=== PATIENT | female | born 1935 | race Caucasian/White ===

== ENCOUNTER 2016-08-02 16:01 | Emergency (ER) | payer SELFPAY ==
[~2016-08-02] VITALS: Ht 167.6 cm; Wt 52.0 kg
[2016-08-02 16:13] VITALS: BP 98/50; PULSE 62; RESP 18; TEMP 97.5; O2SAT 99
--- NOTE | 2016-08-02 16:23 | PD ---
HPI Chief Complaint: Syncope/Near-Syncope Time Seen by Provider: 16:17 Travel History International Travel<30 days: No Contact w/Intl Traveler<30days: No Traveled to known affect area: No History of Present Illness HPI 81-year-old female presents to the emergency department via ambulance with near-syncope episode in local restaurant. Patient states she went out to lunch with her friends, and had a cheeseburger, and when she went to pay the bill she felt weak and lightheaded, and almost passed out. Currently she denies any pain or other symptoms. She has no headache or other neurological symptoms. States she had nausea at the onset of her weakness, but none now. Patient states she did take some laxatives for her chronic constipation and upon arrival here in the emergency department actually went to the bathroom and moved her bowels, and she feels better. Patient's blood pressure is noted to be 90/50. Her pulse is also noted to be 55 bpm. She has not been seen here prior to this visit. She has no known drug allergies. [facility] Social History Alcohol Use: Yes Tobacco Use: No Substance Use: No Allergies-Medications (Allergen,Severity, Reaction): Coded Allergies: No Known Allergies (Unverified , 08/02/16) Reported Meds & Prescriptions Reported Meds & Active Scripts Active Reported Metoprolol Tartrate 25 Mg Tab 25 Mg PO DAILY Lisinopril 20 Mg Tab 20 Mg PO DAILY Review of Systems Except as stated in HPI: all other systems reviewed are Neg General / Constitutional: No: Fever Eyes: No: Visual changes HENT: No: Headaches Cardiovascular: No: Chest Pain or Discomfort Respiratory: No: Shortness of Breath Gastrointestinal: Positive: Nausea, No: Abdominal Pain Genitourinary: No: Dysuria Musculoskeletal: No: Pain Skin: No Rash Neurologic: No: Weakness Psychiatric: No: Depression Endocrine: No: Polydipsia Hematologic/Lymphatic: No: Easy Bruising Physical Exam Narrative GENERAL: Patient appears in no acute distress. SKIN: Warm and dry. Normal color. Slightly poor turgor. HEAD: Atraumatic. Normocephalic. EYES: Pupils equal and round. No scleral icterus. No injection or drainage. ENT: No nasal bleeding or discharge. Mucous membranes pink and moist. Pharynx is clear. Airway is patent. NECK: Trachea midline. Supple and nontender. CARDIOVASCULAR: Bradycardic rate and normal rhythm. RESPIRATORY: No accessory muscle use. Clear to auscultation. Breath sounds equal bilaterally. GASTROINTESTINAL: Abdomen soft, non-tender, nondistended. Hepatic and splenic margins not palpable. MUSCULOSKELETAL: Extremities without clubbing, cyanosis, or edema. No obvious deformities. NEUROLOGICAL: Awake and alert. No obvious cranial nerve deficits. Motor grossly within normal limits. Five out of 5 muscle strength in the arms and legs. Normal speech. PSYCHIATRIC: Appropriate mood and affect; insight and judgment normal. Data Data Last Documented VS Vital Signs Date Time Temp Pulse Resp B/P Pulse Ox O2 Delivery O2 Flow Rate FiO2 08/02/16 16:55 53 14 99/55 53 14 98/54 66 14 75/49 08/02/16 16:35 97 Room Air 08/02/16 16:13 97.5 Orders Electrocardiogram (08/02/16 16:) Complete Blood Count With Diff (08/02/16 16:) Comprehensive Metabolic Panel (08/02/16:) Magnesium (Mg) (08/02/16) B-Type Natriuretic Peptide (08/02/16 16:) Ckmb (Isoenzyme) Profile (08/02/16 16:24) Troponin I (08/02/16 16:) Act Partial Throm Time (Ptt) (08/02/16 16:) Prothrombin Time / Inr (Pt) (08/02/16 16:24) Urinalysis - C+S If Indicated (08/02/16 16:) Chest, Single Ap (08/02/16 16:) Ecg Monitoring (08/02/16) Iv Access Insert/Monitor (08/02/16:) Oximetry (08/02/16 16:24) Sodium Chloride 0.9% Flush (Ns Flush) (08/02/16 16:30) Orthostatic Vital Signs (08/02/16 16:) Sodium Chlorid 0.9% 500 Ml Inj (Ns 500 M (08/02/16 16:30) CKMB (08/02/16 16:35) CKMB% (08/02/16 16:35) Labs Laboratory Tests Test 08/02/16: White Blood Count 8.3 TH/MM3 Red Blood Count 4.42 MIL/MM3 Hemoglobin 12.9 GM/DL Hematocrit 38.5 % Mean Corpuscular Volume 86.9 FL Mean Corpuscular Hemoglobin 29.2 PG Mean Corpuscular Hemoglobin 33.6 % Concent Red Cell Distribution Width 13.1 % Platelet Count 309 TH/MM3 Mean Platelet Volume 7.0 FL Neutrophils (%) (Auto) 70.2 % Lymphocytes (%) (Auto) 16.9 % Monocytes (%) (Auto) 8.2 % Eosinophils (%) (Auto) 2.0 % Basophils (%) (Auto) 2.7 % Neutrophils # (Auto) 5.8 TH/MM3 Lymphocytes # (Auto) 1.4 TH/MM3 Monocytes # (Auto) 0.7 TH/MM3 Eosinophils # (Auto) 0.2 TH/MM3 Basophils # (Auto) 0.2 TH/MM3 CBC Comment DIFF FINAL Differential Comment Prothrombin Time 11.3 SEC Prothromb Time International 1.0 RATIO Ratio Activated Partial 21.4 SEC Thromboplast Time Sodium Level 140 MEQ/L Potassium Level 4.5 MEQ/L Chloride Level 108 MEQ/L Carbon Dioxide Level 21.3 MEQ/L Anion Gap 11 MEQ/L Blood Urea Nitrogen 31 MG/DL Creatinine 1.60 MG/DL Estimat Glomerular Filtration 31 ML/MIN Rate Random Glucose 142 MG/DL Calcium Level 8.8 MG/DL Magnesium Level 2.2 MG/DL Total Bilirubin 0.7 MG/DL Aspartate Amino Transf 39 U/L (AST/SGOT) Alanine Aminotransferase 19 U/L (ALT/SGPT) Alkaline Phosphatase 64 U/L Total Creatine Kinase 156 U/L Creatine Kinase MB 2.8 NG/ML Troponin I LESS THAN 0.02 NG/ML B-Type Natriuretic Peptide 127 PG/ML Total Protein 7.8 GM/DL Albumin 4.1 GM/DL [facility] Medical Decision Making Medical Screen Exam Complete: Yes Emergency Medical Condition: Yes Differential Diagnosis Near syncope. Hypertension. Vasovagal reaction. Narrative Course Patient is medically stable at time of exam. Labs ordered including CBC, CMP, cardiac labs, urinalysis. EKG and chest x-ray are ordered. EKG shows sinus bradycardia with first-degree AV block. CBC is unremarkable. CMP is unremarkable. Troponin is negative. Urinalysis is normal. Orthostatics were performed showing the patient does not feel symptomatic but she does have an increase in her heart rate and decrease in her blood pressure. Patient is given 500 mL of normal saline bolus. Patient is discussed with Dr. Smallwood. After the patient's 500 mL normal saline bolus orthostatics were improved and the patient feels well. Patient is felt to be stable to be discharged home. Patient should follow with her primary care physician. She is encouraged to drink more fluids. She can return the emergency Department with any worsening symptoms as warranted. Diagnosis Primary Impression: Syncope, near Additional Impression: Dehydration Referrals: Primary Care Physician Patient Instructions: Dehydration (ED), General Instructions Additional Instructions: After the patient's 500 mL normal saline bolus orthostatics were improved and the patient feels well. Patient is felt to be stable to be discharged home. Patient should follow with her primary care physician. She is encouraged to drink more fluids. She can return the emergency Department with any worsening symptoms as warranted. Med/Other Pt SpecificInfo: Prescription(s) given Disposition: DISCHARGE HOME Condition: Stable Vinay Nunez August 02, 2016 16:23
[2016-08-02] MEDS ORDERED: LISI-515 PO (16:25)
[2016-08-02] MEDS ORDERED: METO25TA3 PO (16:25)
[2016-08-02] MEDS ORDERED: SODIUM CHLORID 0.9% 500 ML INJ 500 ML IV ONE (16:30)
[2016-08-02] MEDS ORDERED: SODIUM CHLORIDE 0.9% FLUSH 10 ML FLUSH IVF PRN (16:30)
[2016-08-02 16:35] VITALS: O2SAT 97
[2016-08-02 16:41] LABS: AUTOMATED NEUTROPHIL # 5.8 TH/MM3 (1.8-7.7); BASOPHIL # 0.2 TH/MM3 (0-0.2); BASOPHIL % 2.7 % (0.0-2.0); EOSINOPHIL # 0.2 TH/MM3 (0-0.4); HEMATOCRIT 38.5 % (35.0-46.0); HEMO FLAGS DIFF FINAL; LYMPH % 16.9 % (9.0-44.0); LYMPHOCYTE # 1.4 TH/MM3 (1.0-4.8); MEAN CELL VOLUME 86.9 FL (80.0-100.0); MEAN CORPUSCULAR HEMOGLOBIN 29.2 PG (27.0-34.0); MEAN CORPUSCULAR HGB CONC 33.6 % (32.0-36.0); MONO % 8.2 % (0.0-8.0); NEUT % 70.2 % (16.0-70.0); PLATELET COUNT 309 TH/MM3 (150-450); RED BLOOD COUNT 4.42 MIL/MM3 (4.00-5.30); RED CELL DISTRIBUTION WIDTH 13.1 % (11.6-17.2); WHITE BLOOD COUNT 8.3 TH/MM3 (4.0-11.0)
[2016-08-02 16:50] LABS: CHLORIDE 108 MEQ/L (98-107); POTASSIUM 4.5 MEQ/L (3.5-5.1); SODIUM (NA) 140 MEQ/L (136-145)
[2016-08-02 16:54] LABS: ANION GAP 11 MEQ/L (5-15); BICARBONATE 21.3 MEQ/L (21.0-32.0); BLOOD UREA NITROGEN 31 MG/DL (7-18); MAGNESIUM 2.2 MG/DL (1.5-2.5)
--- NOTE | 2016-08-02 16:54 | RADHPO ---
EXAM DATE/TIME: 08/02/2016 16:32 [facility] COMPARISON: No previous studies available for comparison. INDICATIONS : Syncope. MEDICAL HISTORY : None. SURGICAL HISTORY : None. ENCOUNTER: Initial ACUITY: 1 day PAIN SCORE: 0/10 LOCATION: Bilateral chest FINDINGS: A single view of the chest demonstrates the lungs to be symmetrically aerated without evidence of mas s, infiltrate or effusion. The cardiomediastinal contours are unremarkable. Healing fracture right humerus. CONCLUSION: No acute disease. Jimi Lowe MD FACR on August 02, 2016 at 16:52 Board Certified Radiologist. This report was verified electronically.
[2016-08-02 16:55] VITALS: BP_SYST 75; BP_SYST 98; BP_SYST 99; BP_DIAS 49; BP_DIAS 54; BP_DIAS 55; RESP 14
[2016-08-02 16:55] LABS: APTT (PATIENT) 21.4 SEC (24.3-30.1); PROTHROMBIN TIME - PATIENT 11.3 SEC (9.8-11.6)
[2016-08-02 16:57] LABS: ALT (GPT) 19 U/L (10-53); AST (GOT) 39 U/L (15-37); GLOMERULAR FILTRATION RATE 31 ML/MIN (>89)
[2016-08-02 16:59] LABS: TOTAL BILIRUBIN ADULT 0.7 MG/DL (0.2-1.0)
[2016-08-02 17:00] LABS: ALKALINE PHOSPHATASE 64 U/L (45-117); CREATINE KINASE 156 U/L (26-192)
[2016-08-02 17:13] LABS: CKMB 2.8 NG/ML (0.5-3.6)
[2016-08-02 18:31] VITALS: BP_SYST 114; BP_SYST 119; BP_DIAS 55; BP_DIAS 67; RESP 18
--- NOTE | 2016-08-03 13:30 | EKG ---
Date Performed: 08/02/2016 Time Performed: 16:27:44 PTAGE: 81 years EKG: Sinus bradycardia with 1st degree A-V block rSr'(V1) - probable normal variant Abnormal ECG NO PREVIOUS TRACING DOCTOR: Simin Greer Interpretating Date/Time 08/03/2016 13:28:21
== END 2016-08-02 18:56 | disposition home or self-care (01) ==
LOC: PHEFT 16:01
DX: R55 Syncope and collapse (principal); E86.0 Dehydration; R00.1 Bradycardia, unspecified; I44.0 Atrioventricular block, first degree
CPT/HCPCS: 71010; 80053; 82550; 82552; 83735; 83880; 84484; 85025; 85610; 85730; 93005; 96360; 99284; J7040

== ENCOUNTER 2017-02-12 22:35 | Inpatient (IN) | payer MEDICARE ==
[~2017-02-12] VITALS: Ht 166.4 cm; Wt 53.6 kg
[~2017-02-12 22:35] MED LIST: LISI-515 PO; METO25TA3 PO
[2017-02-12 22:42] VITALS: BP 174/81; PULSE 63; RESP 20; O2SAT 94
--- NOTE | 2017-02-12 23:51 | PD ---
HPI Chief Complaint: Fall Time Seen by Provider: 23:47 Travel History International Travel<30 days: No Contact w/Intl Traveler<30days: No Traveled to known affect area: No History of Present Illness HPI 82-year-old female presents to the emergency department from home by EMS transport for injury to the right hip and thigh. Patient reports just prior to arrival to the emergency department she lost her balance on her son's floor which is uneven and fell landing on her hip. Patient states she did not hit her head did not have loss of consciousness she did not injure her neck or back or chest or her abdomen. 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 Patient was unable to stand after her fall and cannot weight-bear on the right lower extremity. Patient denies any left lower extremity pain patient denies any pelvic pain. Patient states pain is primarily mid thigh and lower thigh of the right lower extremity. Patient takes no blood thinning agents. Pain is 8/10 in intensity with attempted movement or palpation. PFSH Past Medical History Narrative Medical Hypertension; no tobacco use; nursing notes reviewed Cardiovascular Problems: Yes (murmur) Diminished Hearing: Yes Hypertension: Yes Tetanus Vaccination: Never Vaccinated Influenza Vaccination: Yes ?: Not : 1 Para: 1 Past Surgical History Surgical History: No Previous Surgery Social History Alcohol Use: Yes (occ) Tobacco Use: No Substance Use: No Allergies-Medications (Allergen,Severity, Reaction): Coded Allergies: No Known Allergies (Unverified , 08/02/16) Reported Meds & Prescriptions Reported Meds & Active Scripts Active Reported Lisinopril 20 Mg Tab 20 Mg PO DAILY Review of Systems Except as stated in HPI: all other systems reviewed are Neg Physical Exam Narrative GENERAL: Well-developed well-nourished female in no acute distress no respiratory distress SKIN: Warm and dry. HEAD: Atraumatic. Normocephalic. EYES: Pupils equal and round. No scleral icterus. No injection or drainage. ENT: No nasal bleeding or discharge. Mucous membranes pink and moist. NECK: Trachea midline. No JVD. CARDIOVASCULAR: Regular rate and rhythm. RESPIRATORY: No accessory muscle use. Clear to auscultation. Breath sounds equal bilaterally. GASTROINTESTINAL: Abdomen soft, non-tender, nondistended. Hepatic and splenic margins not palpable. MUSCULOSKELETAL: Extremities without clubbing, cyanosis, or edema. No obvious deformities. Arthritic changes to the hands and right shoulder which are chronic according to the patient; left lower extremity is held in hip flexion and abduction with knee flexion distally extremity is neurovascular tendon intact with attempted range of motion or palpation of the distal femur patient complains of pain. Dorsalis pedis pulses 2+ to palpation. Capillary refill brisk and less than 2 seconds per digit. NEUROLOGICAL: Awake and alert. No obvious cranial nerve deficits. Motor grossly within normal limits. Five out of 5 muscle strength in the arms and legs. Normal speech. PSYCHIATRIC: Appropriate mood and affect; insight and judgment normal. Data Data Last Documented VS Vital Signs Date Time Temp Pulse Resp B/P (MAP) Pulse Ox O2 Delivery O2 Flow Rate FiO2 02/13/17 00:20 60 20 164/71 (102) 98 Room Air Orders Orders Electrocardiogram (02/12/17 23:47) Complete Blood Count With Diff (02/12/17 23:47) Comprehensive Metabolic Panel (02/12/17 23:47) Prothrombin Time / Inr (Pt) (02/12/17 23:47) Act Partial Throm Time (Ptt) (02/12/17 23:47) Urinalysis - C+S If Indicated (02/12/17 23:47) Type And Screen (02/12/17 23:47) Chest, Single Ap (02/12/17 23:47) Femur (Ap & Lat/2vws) (02/12/17 23:47) Iv Access Insert/Monitor (02/12/17 23:47) Oximetry (02/12/17 23:47) Ecg Monitoring (02/12/17 23:47) Morphine Inj (Morphine Inj) (02/13/17 00:00) Ondansetron Inj (Zofran Inj) (02/13/17 00:00) Sodium Chloride 0.9% Flush (Ns Flush) (02/13/17 00:00) Diet Npo (02/14/17 Breakfast) Urinary Catheter Insert/Apply (02/13/17 01:25) Ice/Cold Pack (02/13/17 01:25) Traction (02/13/17 01:25) Admit Order (Ed Use Only) (02/13/17 ) Melt House Centrifugal Operator / Telemetry CLAUDIA.Q8H (02/13/17 01:32) Diet Npo (02/13/17 Breakfast) Activity Bed Rest (02/13/17 01:32) Notify Dr: Other (02/13/17 01:32) Consult Orthopedic (02/13/17 ) Labs Laboratory Tests Test 02/12/17 23:50 White Blood Count 7.9 TH/MM3 Red Blood Count 4.39 MIL/MM3 Hemoglobin 13.1 GM/DL Hematocrit 38.0 % Mean Corpuscular Volume 86.7 FL Mean Corpuscular Hemoglobin 29.8 PG Mean Corpuscular Hemoglobin Concent 34.3 % Red Cell Distribution Width 13.4 % Platelet Count 289 TH/MM3 Mean Platelet Volume 7.5 FL Neutrophils (%) (Auto) 69.0 % Lymphocytes (%) (Auto) 21.1 % Monocytes (%) (Auto) 7.7 % Eosinophils (%) (Auto) 1.6 % Basophils (%) (Auto) 0.6 % Neutrophils # (Auto) 5.5 TH/MM3 Lymphocytes # (Auto) 1.7 TH/MM3 Monocytes # (Auto) 0.6 TH/MM3 Eosinophils # (Auto) 0.1 TH/MM3 Basophils # (Auto) 0.0 TH/MM3 CBC Comment DIFF FINAL Differential Comment Prothrombin Time 10.7 SEC Prothromb Time International Ratio 1.0 RATIO Activated Partial Thromboplast Time 24.1 SEC Blood Urea Nitrogen 26 MG/DL Creatinine 1.07 MG/DL Random Glucose 139 MG/DL Total Protein 7.7 GM/DL Albumin 3.9 GM/DL Calcium Level 9.1 MG/DL Alkaline Phosphatase 69 U/L Aspartate Amino Transf (AST/SGOT) 24 U/L Alanine Aminotransferase (ALT/SGPT) 20 U/L Total Bilirubin 0.4 MG/DL Sodium Level 138 MEQ/L Potassium Level 4.2 MEQ/L Chloride Level 104 MEQ/L Carbon Dioxide Level 26.8 MEQ/L Anion Gap 7 MEQ/L Estimat Glomerular Filtration Rate 49 ML/MIN MDM Medical Decision Making Medical Screen Exam Complete: Yes Emergency Medical Condition: Yes Medical Record Reviewed: Yes Interpretation(s) EKG: Normal sinus rhythm rate 61 first-degree heart block RSR prime V1 V2 no acute ST elevation or injury pattern Last Impressions Femur X-Ray 02/12/17 1524 Signed Impressions: Service Date/Time: January 00:25 - CONCLUSION: Intertrochanteric fracture with medial angulation. Constantino Blank MD Chest X-Ray 02/12/17 9827 Signed Impressions: Service Date/Time: January 00:27 - CONCLUSION: No evidence of acute cardiopulmonary disease. Constantino Blank MD CBC & BMP Diagram 02/12/17 23:50 Total Protein 7.7, Albumin 3.9, Calcium Level 9.1, Alkaline Phosphatase 69, Aspartate Amino Transf (AST/SGOT) 24, Alanine Aminotransferase (ALT/SGPT) 20, Total Bilirubin 0.4 Vital Signs Date Time Temp Pulse Resp B/P (MAP) Pulse Ox O2 Delivery O2 Flow Rate FiO2 02/13/17 00:20 60 20 164/71 (102) 98 Room Air 02/13/17 00:15 Room Air 02/12/17 22:42 63 20 174/81 (112) 94 Differential Diagnosis Hip fracture femur fracture subluxation dislocation Narrative Course IV access obtained specimens collected and sent for resulting imaging studies ordered Hip x-ray consistent with intertrochanteric fracture of the right hip Patient informed of plan for admission for surgical repair of fracture Call placed to [facility] service for admission with consult in a.m. to orthopedist Physician Communication Physician Communication Call placed to [facility] service for admission Diagnosis Primary Impression: Closed intertrochanteric fracture of right hip Admitting Information Admitting Physician Requests: Admit Nadege Meza MD Feb 12, 2017 23:51
[2017-02-13] VITALS (12 sets, daily range): BP systolic 105–169; BP diastolic 55–80; PULSE 60–86; RESP 17–20; TEMP 95.7–98.3; O2SAT 93–99
[2017-02-13] MEDS ORDERED: MORPHINE SULFATE 4 MG/ML INJ IV PUSH ONE
[2017-02-13] MEDS ORDERED: ONDANSETRON HCL 4 MG/2 ML VIAL IVP ONE
[2017-02-13] MEDS ORDERED: SODIUM CHLORIDE 0.9% FLUSH 10 ML FLUSH IVF PRN
[2017-02-13 00:02] LABS: AUTOMATED NEUTROPHIL # 5.5 TH/MM3 (1.8-7.7); BASOPHIL % 0.6 % (0.0-2.0); EOSINOPHIL # 0.1 TH/MM3 (0-0.4); EOSINOPHIL % 1.6 % (0.0-4.0); HEMO FLAGS DIFF FINAL; LYMPH % 21.1 % (9.0-44.0); LYMPHOCYTE # 1.7 TH/MM3 (1.0-4.8); MEAN CELL VOLUME 86.7 FL (80.0-100.0); MEAN CORPUSCULAR HEMOGLOBIN 29.8 PG (27.0-34.0); MEAN CORPUSCULAR HGB CONC 34.3 % (32.0-36.0); MONO % 7.7 % (0.0-8.0); PLATELET COUNT 289 TH/MM3 (150-450); RED BLOOD COUNT 4.39 MIL/MM3 (4.00-5.30); RED CELL DISTRIBUTION WIDTH 13.4 % (11.6-17.2); WHITE BLOOD COUNT 7.9 TH/MM3 (4.0-11.0)
[2017-02-13 00:17] LABS: APTT (PATIENT) 24.1 SEC (24.3-30.1); PROTHROMBIN TIME - PATIENT 10.7 SEC (9.8-11.6)
[2017-02-13 00:21] LABS: ALT (GPT) 20 U/L (10-53); ANION GAP 7 MEQ/L (5-15); AST (GOT) 24 U/L (15-37); BICARBONATE 26.8 MEQ/L (21.0-32.0); BLOOD UREA NITROGEN 26 MG/DL (7-18); CHLORIDE 104 MEQ/L (98-107); GLOMERULAR FILTRATION RATE 49 ML/MIN (>89); POTASSIUM 4.2 MEQ/L (3.5-5.1); SODIUM (NA) 138 MEQ/L (136-145)
[2017-02-13 00:23] LABS: ALKALINE PHOSPHATASE 69 U/L (45-117); TOTAL BILIRUBIN ADULT 0.4 MG/DL (0.2-1.0)
--- NOTE | 2017-02-13 01:01 | RADRPT ---
EXAM DATE/TIME: 02/13/2017 00:27 [facility] COMPARISON: CHEST SINGLE AP, August 02, 2016, 16:32. INDICATIONS : Shortness of breath. MEDICAL HISTORY : None. SURGICAL HISTORY : None. ENCOUNTER: Initial ACUITY: 1 day PAIN SCORE: 0/10 LOCATION: Bilateral chest FINDINGS: There is biapical pleural thickening/scarring. No acute pneumonia seen. No pleural effusion or pneumo thorax. Heart size stable, within normal limits. Thoracic aorta is tortuous. There is a partly healed fracture of the surgical neck of the right humerus. CONCLUSION: No evidence of acute cardiopulmonary disease. Constantino Blank MD on February 13, 2017 at 0:57 Board Certified Radiologist. This report was verified electronically.
--- NOTE | 2017-02-13 01:03 | RADRPT ---
EXAM DATE/TIME: 02/13/2017 00:25 [facility] COMPARISON: No previous studies available for comparison. INDICATIONS : Right femur pain, fall. MEDICAL HISTORY : None. SURGICAL HISTORY : None. ENCOUNTER: Initial ACUITY: 1 day PAIN SCORE: 10/10 LOCATION: Right proximal femur FINDINGS: There is an acute intertrochanteric fracture of the right femur with moderate medial angulation defor mity. Femoral head appears intact. 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 No subluxation. CONCLUSION: Intertrochanteric fracture with medial angulation. Constantino Blank MD on February 13, 2017 at 1:01 Board Certified Radiologist. This report was verified electronically.
[2017-02-13] MEDS ORDERED: PRAV40TA2 PO (01:52)
[2017-02-13] MEDS ORDERED: SODIUM CHLOR 0.45% 1000 ML INJ 1,000 ML IV SCH (01:58)
[2017-02-13] MEDS ORDERED: LACTULOSE SYRUP 20 GM/30 ML CUP PO PRN (02:00)
[2017-02-13] MEDS ORDERED: BISACODYL 10 MG SUPP RECTAL PRN (02:00)
[2017-02-13] MEDS ORDERED: ONDANSETRON HCL 4 MG/2 ML VIAL IVP PRN ×2 (02:00→08:45)
[2017-02-13] MEDS ORDERED: SODIUM CHLORIDE 0.9% FLUSH 10 ML FLUSH IV FLUSH PRN (02:00)
[2017-02-13] MEDS ORDERED: MAGNESIUM HYDROXIDE SUSP 30 ML CUP PO PRN (02:00)
[2017-02-13] MEDS ORDERED: NALOXONE HCL 0.4 MG/ML AMP IV PUSH PRN (02:00)
[2017-02-13] MEDS ORDERED: SENNOSIDES 8.6 MG TAB PO PRN (02:00)
--- NOTE | 2017-02-13 02:10 | HHI.HP ---
[facility] Service [facility] Primary Care Physician Denny Ma MD Admission Diagnosis R hip fracture, closed Diagnoses: Travel History International Travel<30 Days: No Contact w/Intl Traveler <30 Da: No Traveled to Known Affected Are: No History of Present Illness 2-year-old female with a past medical history of hypertension and hyperlipidemia since after falling in her home this evening. The patient reports she had walked into her son's bedroom and tripped over a board on the floor falling directly onto her right hip. She has full memory of the event. She denies any preceding lightheadedness or dizziness. She did not hit her head or lose consciousness. Femur x-ray significant for an intertrochanteric fracture with medial angulation. The patient reports pain only when she attempts to move. Review of Systems Denies fever or chills Denies blurry vision, otorrhea, rhinorrhea Denies sore throat and cough No chest pain, palpitations, shortness of breath No abdominal pain Denies constipation/diarrhea/nausea/vomiting Denies muscle pain/weakness No rashes Past Family Social History Past Medical History Hypertension Hyperlipidemia Past Surgical History None Reported Medications Reported Meds & Active Scripts Active Reported Pravastatin 40 Mg Tab 40 Mg PO DAILY Lisinopril 20 Mg Tab 20 Mg PO DAILY Allergies: Coded Allergies: No Known Allergies (Unverified , 08/02/16) Family History Denies family history of cardiac disease or diabetes mellitus. Social History Never smoker. Drinks eggnog occasionally during the holidays. Denies illicit drug use. Physical Exam Vital Signs Vital Signs Date Time Temp Pulse Resp B/P (MAP) Pulse Ox O2 Delivery O2 Flow Rate FiO2 02/13/17 00:20 60 20 164/71 (102) 98 Room Air 02/13/17 00:15 Room Air 02/12/17 22:42 63 20 174/81 (112) 94 Physical Exam GENERAL: Thin, female lying in bed SKIN: No rashes, ecchymoses or lesions. Cool and dry. HEAD: Atraumatic. Normocephalic. No temporal or scalp tenderness. EYES: Pupils equal round and reactive. Extraocular motions intact. No scleral icterus. No injection or drainage. ENT: Nose without bleeding, purulent drainage or septal hematoma. Throat without erythema, tonsillar hypertrophy or exudate. Uvula midline. Airway patent. NECK: Trachea midline. No JVD or lymphadenopathy. Supple, nontender, no meningeal signs. CARDIOVASCULAR: Regular rate and rhythm. 3/6 systolic ejection murmur. RESPIRATORY: Clear to auscultation. Breath sounds equal bilaterally. No wheezes , rales, or rhonchi. GASTROINTESTINAL: Abdomen soft, non-tender, nondistended. No hepato-splenomegaly , or palpable masses. No guarding. MUSCULOSKELETAL: Right lower extremity held in hip flexion. Neurovascularly intact. Dorsalis pedis pulses 2+. No edema bilaterally. NEUROLOGICAL: Awake and alert. Cranial nerves II through XII intact. Motor and sensory grossly within normal limits. Normal speech. Laboratory Laboratory Tests Test 02/12/17 23:50 White Blood Count 7.9 Red Blood Count 4.39 Hemoglobin 13.1 Hematocrit 38.0 Mean Corpuscular Volume 86.7 Mean Corpuscular Hemoglobin 29.8 Mean Corpuscular Hemoglobin Concent 34.3 Red Cell Distribution Width 13.4 Platelet Count 289 Mean Platelet Volume 7.5 Neutrophils (%) (Auto) 69.0 Lymphocytes (%) (Auto) 21.1 Monocytes (%) (Auto) 7.7 Eosinophils (%) (Auto) 1.6 Basophils (%) (Auto) 0.6 Neutrophils # (Auto) 5.5 Lymphocytes # (Auto) 1.7 Monocytes # (Auto) 0.6 Eosinophils # (Auto) 0.1 Basophils # (Auto) 0.0 CBC Comment DIFF FINAL Differential Comment Prothrombin Time 10.7 Prothromb Time International Ratio 1.0 Activated Partial Thromboplast Time 24.1 Blood Urea Nitrogen 26 Creatinine 1.07 Random Glucose 139 Total Protein 7.7 Albumin 3.9 Calcium Level 9.1 Alkaline Phosphatase 69 Aspartate Amino Transf (AST/SGOT) 24 Alanine Aminotransferase (ALT/SGPT) 20 Total Bilirubin 0.4 Sodium Level 138 Potassium Level 4.2 Chloride Level 104 Carbon Dioxide Level 26.8 Anion Gap 7 Estimat Glomerular Filtration Rate 49 Result Diagram: 02/12/17234902/12/172349 Caprini VTE Risk Assessment Caprini VTE Risk Assessment: Mod/High Risk (score >= 2) Caprini Risk Assessment Model Point Value = 1 Point Value = 2 Point Value = 3 Point Value = 5 Age 41-60 Minor surgery BMI > 25 kg/m2 Swollen legs Varicose veins or History of unexplained or recurrent spontaneous Oral contraceptives or hormone replacement Sepsis (< 1 month) Serious lung disease, including pneumonia (< 1 month) Abnormal pulmonary function Acute myocardial infarction Congestive heart failure (< 1 month) History of inflammatory bowel disease Medical patient at bed rest Age 61-74 Arthroscopic surgery Major open surgery (> 45 min) Laparoscopic surgery (> 45 min) Malignancy Confined to bed (> 72 hours) Immobilizing plaster cast Central venous access Age >= 75 History of VTE Family history of VTE Factor V Leiden Prothrombin [id number] Lupus anticoagulant Anticardiolipin antibodies Elevated serum homocysteine Heparin-induced thrombocytopenia Other congenital or acquired thrombophilia Stroke (< 1 month) Elective arthroplasty Hip, pelvis, or leg fracture Acute spinal cord injury (< 1 month) Prophylaxis Regimen Total Risk Factor Score Risk Level Prophylaxis Regimen 0-1 Low Early ambulation 2 Moderate Order ONE of the following: *Sequential Compression Device (SCD) *Heparin 5000 units SQ BID 3-4 Higher Order ONE of the following medications: *Heparin 5000 units SQ TID *Enoxaparin/Lovenox 40 mg SQ daily (WT < 150 kg, CrCl > 30 mL/min) *Enoxaparin/Lovenox 30 mg SQ daily (WT < 150 kg, CrCl > 10-29 mL/min) *Enoxaparin/Lovenox 30 mg SQ BID (WT < 150 kg, CrCl > 30 mL/min) AND/OR *Sequential Compression Device (SCD) 5 or more Highest Order ONE of the following medications: *Heparin 5000 units SQ TID (Preferred with Epidurals) *Enoxaparin/Lovenox 40 mg SQ daily (WT < 150 kg, CrCl > 30 mL/min) *Enoxaparin/Lovenox 30 mg SQ daily (WT < 150 kg, CrCl > 10-29 mL/min) *Enoxaparin/Lovenox 30 mg SQ BID (WT < 150 kg, CrCl > 30 mL/min) AND *Sequential Compression Device (SCD) Assessment and Plan Assessment and Plan 82-year-old female with a past medical history significant for hypertension and hyperlipidemia presents with right intertrochanteric hip fracture after a slip and fall accident at home. 1. Right intertrochanteric hip fracture Femur x-ray shows intertrochanteric fracture with medial angulation Orthopedic surgery consulted, appreciate recommendations Nothing by mouth in anticipation of OR later today Morphine for pain 2. Hypertension Continue home lisinopril 3. Hyperlipidemia Continue home pravastatin FEN NPO NS at 65 cc/hr Electrolytes: monitor and replete prn Holding pharmacologic anticoagulation in anticipation of OR later today Spoke with the ED physician at length about the case Physician Certification 2 Midnight Certification Type: Admission for Inpatient Services Order for Inpatient Services The services are ordered in accordance with Medicare regulations or non- Medicare payer requirements, as applicable. In the case of services not specified as inpatient-only, they are appropriately provided as inpatient services in accordance with the 2-midnight benchmark. Estimated LOS (days): 2 2 days is the estimated time the patient will need to remain in the hospital, assuming treatment plan goals are met and no additional complications. Post-Hospital Plan: Not yet determined Katie Hoffman MD Feb 13, 2017 02:10
[2017-02-13] MEDS ORDERED: MORPHINE SULFATE 2 MG/ML INJ IV PUSH PRN (02:15)
[2017-02-13 02:26] LABS: BLOOD, URINE NEG (NEG); GLUCOSE,URINE NEG (NEG); KETONE, URINE NEG (NEG); MUCUS URINE FEW /lpf (OCC); NITRITE,URINE NEG (NEG); URINE COLOR YELLOW (YELLW/STRAW)
[2017-02-13 02:27] LABS: COMMENT (UR) CATH-CULT NOT IND; CULTURE IF INDICATED CATH CULTURE NOT IND
[2017-02-13] MEDS ORDERED: LACTATED RINGER'S 1000 ML IV PRN (02:45)
[2017-02-13] MEDS ORDERED: SODIUM CHLORID 0.9% 500 ML IV PRN (02:45)
[2017-02-13] MEDS ORDERED: POVIDONE IODINE 5% (ANTISEPSIS KIT) 4 APPLICATIONS EACH NARE PRN (02:45)
[2017-02-13] MEDS ORDERED: CHLORHEXIDINE GLUCONATE 2 % 1 PACK (2 CLOTHS) TOPICAL PRN (02:45)
[2017-02-13] MEDS: LISINOPRIL 20 MG TAB PO SCH (07:19)
[2017-02-13] MEDS: PRAVASTATIN SOD 40 MG TAB PO SCH (07:19)
[2017-02-13] MEDS ORDERED: VANCOMYCIN HCL 1000 MG VIAL ONE (07:44)
[2017-02-13] MEDS ORDERED: GENTAMICIN SULFATE 80 MG/2 ML VIAL ONE (07:44)
[2017-02-13] MEDS ORDERED: SODIUM CHLOR 0.9% 250 ML INJ 250 ML ONE (07:45)
[2017-02-13] MEDS ORDERED: ACETAMINOPHEN 1000 MG/100 ML 100 ML IV ONE (08:04)
[2017-02-13] MEDS ORDERED: MORPHINE SULFATE 4 MG/ML INJ IV PUSH PRN (08:30)
[2017-02-13] MEDS ORDERED: ACETAMINOPHEN/HYDROcodone 325 MG/7.5 MG TAB PO PRN ×2 (08:30)
[2017-02-13] MEDS ORDERED: ENOX30P SQ (08:31)
[2017-02-13] MEDS ORDERED: ASPI81CH6 CHEW (08:31)
[2017-02-13] MEDS ORDERED: HYDR-3288 PO (08:32)
[2017-02-13] MEDS ORDERED: diphenhydrAMINE HCL 25 MG CAP PO PRN (08:45)
[2017-02-13] MEDS ORDERED: SODIUM CHLORIDE 0.9% FLUSH 5 ML FLUSH IVF PRN (09:00)
[2017-02-13] MEDS ORDERED: Post-op Orders (for Pharmacy) MISC XX ONE (09:00)
[2017-02-13] MEDS: SODIUM CHLORIDE 0.9% FLUSH 5 ML FLUSH IVF SCH ×2 (09:00→21:04)
[2017-02-13] MEDS ORDERED: SODIUM CHLORIDE 0.9% FLUSH 10 ML FLUSH IV FLUSH SCH (09:00)
[2017-02-13] MEDS ORDERED: MISCELLANEOUS PHARMACY INFORMATION XX ONE (09:00)
[2017-02-13] MEDS ORDERED: DOCUSATE SODIUM 50 MG/SENNA 8.6 MG TAB PO SCH (09:00)
[2017-02-13] MEDS: DOCUSATE SODIUM 50 MG/SENNA 8.6 MG TAB PO SCH ×2 (09:00→21:05)
[2017-02-13] MEDS: MULTIVITAMINS/MINERALS THERAPEUTIC TAB PO SCH (09:00)
[2017-02-13] MEDS ORDERED: MISCELLANEOUS NURSING INFORMATION XX PRN (09:00)
[2017-02-13] MEDS ORDERED: ceFAZolin INJ 1,000 MG VIAL ONE (09:04)
[2017-02-13] MEDS ORDERED: SODIUM CHLORIDE 0.9% INJ 100 ML ONE (09:04)
--- NOTE | 2017-02-13 09:56 | MB ---
cc: ELLA MCCARTHY M.D. DATE OF CONSULTATION: 02/13/2017 REASON FOR CONSULTATION Right intertrochanteric hip fracture. HISTORY OF PRESENT ILLNESS 82-year-old female with past history of hypertension, hyperlipidemia, presented to [facility] Emergency Room after a fall. She tripped and landed directly on the right hip. She developed severe pain with inability to stand, walk, ambulate or move the hip after the fall. She denies loss of consciousness or lightheadedness. X-rays reveal right intertrochanteric hip fracture with angulation. She has worsening of pain with any movement, slight pain and relief with ice and immobilization. No numbness or tingling related to her symptoms. PAST MEDICAL HISTORY 1. Hypertension. 2. Hyperlipidemia. MEDICATION Pravastatin and Lisinopril. ALLERGIES NO KNOWN DRUG ALLERGIES. FAMILY HISTORY Family history is reviewed and unremarkable. SOCIAL HISTORY Nonsmoker, occasionally drinks. Denies drugs. REVIEW OF SYSTEMS Negative for 10-systems other than HPI. PHYSICAL EXAMINATION VITAL SIGNS: Temperature 98, pulse 63, respirations 20, blood pressure 170/80. GENERAL: The patient is a thin female lying in bed, awake, alert. She is very anxious. SKIN: Skin is warm, dry, intact. HEENT: Normocephalic, atraumatic. Pupils are round and reactive to light. Extraocular muscles intact. NECK: Neck is supple. LUNGS: Clear. HEART: Regular rate and rhythm. ABDOMEN: Soft, nontender. EXTREMITIES: She has pain with passive motion of the right hip. She has swelling of the right hip. Skin is intact. She can flex her ankle and toes distally. LABORATORY DATA White blood cell count 7.9, hemoglobin 13, hematocrit 38, platelets 289, glucose 139, creatinine 1.07. X-RAYS Right hip reveal right intertrochanteric hip fracture with angulation. IMPRESSION 82-year-old female status post fall, right displaced intertrochanteric hip fracture. PLAN I discussed diagnosis and treatment options. Also spoke about Nonoperative treatment versus surgery. Surgery would consist of open reduction, internal fixation with intramedullary nailing of the right intertrochanteric hip fracture. Risks of surgery were discussed in detail which include but not limited to anesthesia, bleeding, infection, damage to nerves and blood vessels, pain, failure of hardware, blood clots, pulmonary embolism, even . The patient's pain is severe, she favored the benefits over the risks, she did wish to proceed with surgery. Written consent has been obtained. Surgical site has been marked. MD MAXIMINO Werner/RAYMUNDO /9:27 AM /9:42 AM
--- NOTE | 2017-02-13 10:27 | PD.ORT.PN ---
Objective Vitals Vital Signs Date Time Temp Pulse Resp B/P (MAP) Pulse Ox O2 Delivery O2 Flow Rate FiO2 02/13/17 09:00 68 25 151/68 (95) 97 02/13/17 08:30 75 25 169/78 (108) 97 02/13/17 08:12 74 02/13/17 08:12 98.1 74 19 182/84 (116) 98 02/13/17 08:00 98.3 70 18 169/80 (109) 99 02/13/17 07:29 65 02/13/17 03:00 97.7 83 18 169/67 (101) 98 02/13/17 00:20 60 20 164/71 (102) 98 Room Air 02/13/17 00:15 Room Air 02/12/17 22:42 63 20 174/81 (112) 94 I/O 02/12/17 02/12/17 02/12/17 02/13/17 02/13/17 02/13/17 07:00 15:00 23:00 07:00 15:00 23:00 Intake Total 0 ml 700 ml Output Total 500 ml 10 ml Balance -500 ml 690 ml Intake Oral 0 ml Other 700 ml Output Urine Total 500 ml Estimated Blood Loss 10 ml # Bowel Movements 1 Result Diagram: 02/12/17 2350 02/12/17 2350 Other Results Laboratory Tests Test 02/12/17 23:50 Prothromb Time International Ratio 1.0 RATIO Prothrombin Time 10.7 SEC (9.8-11.6) Imaging Last 24 hours Impressions Femur X-Ray 02/12/172346 Signed Impressions: Service Date/Time: January 00:25 - CONCLUSION: Intertrochanteric fracture with medial angulation. Constantino Blank MD Chest X-Ray 02/12/172346 Signed Impressions: Service Date/Time: January 00:27 - CONCLUSION: No evidence of acute cardiopulmonary disease. Constantino Blank MD Assessment & Plan Ortho Post Op Day #: 0 Problem List: Assessment and Plan s/p R Troch Nail POD#0 50%PWB daily dressing changes lovenox d/c planning f/up dr. milian 2 weeks Tom Rivas Feb 13, 2017 10:26
--- NOTE | 2017-02-13 10:27 | EKG ---
Date Performed: 02/13/2017 Time Performed: 03:08:06 PTAGE: 82 years EKG: Sinus rhythm with 1st degree A-V block Abnormal ECG PREVIOUS TRACING : 08/02/2016 16.27 DOCTOR: Chico Broussard Interpretating Date/Time 02/13/2017 10:24:56
[2017-02-13] MEDS ORDERED: DO NOT ADM ANY ANTICOAGULANT DRUGS PRN (10:28)
--- NOTE | 2017-02-13 10:28 | EKG ---
Date Performed: 02/13/2017 Time Performed: 00:12:45 PTAGE: 82 years EKG: Sinus rhythm WITH FIRST DEGREE AV BLOCK POSSIBLE RIGHT VENTRICULAR CONDUCTION DELAY ABNORMAL ECG NO PREVIOUS TRACING DOCTOR: Chico Broussard Interpretating Date/Time 02/13/2017 10:25:42
--- NOTE | 2017-02-13 10:48 | MP ---
cc: ELLA MCCARTHY M.D. DATE OF SURGERY 02/13/2017 PREOPERATIVE DIAGNOSIS Right intertrochanteric hip fracture. POSTOPERATIVE DIAGNOSES Right intertrochanteric hip fracture. PROCEDURE Intramedullary nailing right intertrochanteric hip fracture. SURGEON Dr. lEla Mccarthy NUT SHELLER EDUARDA Siddiqui ANESTHESIA General ESTIMATED BLOOD LOSS 100 cc COMPLICATIONS None IMPLANTS USED Synthes JUSTIFICATION This patient is an 82-year female who fell sustaining a right displaced intertrochanteric hip fracture. She was taken to [facility] emergency room where x-rays confirmed the above-named findings. Orthopedic surgery consultation. The patient counseled as to the risks, benefits and alternatives to the above-named proposed surgical procedure. She did wish to proceed with surgery. PROCEDURE IN DETAIL A written consent was obtained. The patient identified by name, taken to the operating room, placed supine on the operating room table. General anesthesia was administered as well as one gram of IV Ancef and one gram of IV vancomycin. The right foot was placed in padded traction boot. The left leg placed in padded well leg qiu. All bony prominences and pressure points were well padded. The right hip and right lower tree prepped and draped using as Isopropyl alcohol, Hibiclens solution and Chloraprep solution. After a time-out was performed, a longitudinal incision made over the lateral aspect of the right hip. The fascial layer was incised. The guidewire was used to gain entrance into the intramedullary canal of the femur followed by a cannulated entry reamer and subsequently a Synthes 11 mm x 170-mm titanium trochanteric femoral nail was inserted into the intramedullary canal of the femur. The 130 degree locking jig was used to place a guide pin centered in the femoral head on the AP and lateral fluoroscopic projections followed by placement of 90 mm spiral blade. The top locking screw was then secured to create a fixed angle sliding construct distally. The locking jig was used to place a single lateral to medial transverse static locking screw. Fluoroscopic imaging again confirmed hardware placement and fracture reduction. The surgical wounds were thoroughly irrigated with sterile saline solution. The fascial layer was closed with #1 Vicryl sutures, subcutaneous tissues closed with 2-0 Vicryl suture, and skin was closed with Dermabond. Sterile dressings applied. The patient tolerated the procedure well with no intraoperative complications noted. Aleksander Rivas, Physician Sludge Filtration Attendant Certified, was present during the entire procedure to include patient positioning and the procedure itself. The medical necessity of a physician assistant accounting manager was indicated in this case due to the complexity of the procedure. He assisted with both manipulation of the leg and also traction of muscle, tendon, bone and neurovascular structures. He assisted with both achieving and maintaining fracture reduction along with implantation of the internal fixation device. MD MAXIMINO Werner/JOSI /10:18 AM /10:38 AM
[2017-02-13] MEDS ORDERED: *morphine SULFATE 8 MG/ML PERIprocedure ONLY ONE ×3 (10:55→11:22)
[2017-02-13] MEDS: DEXT 5%-NACL 0.45% 1000 ML INJ 1,000 ML IV SCH ×2 (10:56→16:28)
--- NOTE | 2017-02-13 11:31 | RADRPT ---
EXAM DATE/TIME: 02/13/2017 10:06 [place] COMPARISON: No previous studies available for comparison. INDICATIONS : Troch nail right hip. MEDICAL HISTORY : Right intertrochanteric fracture. SURGICAL HISTORY : None. ENCOUNTER: Initial ACUITY: 2 days PAIN SCORE: Non-responsive. LOCATION: Right Hip. FINDINGS: For images recorded digitally in the operating room during placement of intramedullary leola and proxim al femoral nail. Distal intercalated screw is also present. CONCLUSION: Intraoperative images. Ankush Bennett MD on February 13, 2017 at 11:29 Board Certified Radiologist. This report was verified electronically.
[2017-02-13] MEDS ORDERED: ePHEDrine/NS 25 MG/5 ML SYR IV ONE (12:00)
[2017-02-13] MEDS ORDERED: ROCURONIUM INJ 50 MG/5 ML SYRINGE IV PUSH ONE (12:00)
[2017-02-13] MEDS ORDERED: GLYCOPYRROLATE 1 MG/5 ML SYRINGE IV PUSH ONE (12:00)
[2017-02-13] MEDS ORDERED: MIDAZOLAM HCL 2 MG/2 ML VIAL IV ONE (12:00)
[2017-02-13] MEDS ORDERED: PHENYLEPH/NS 1000 MCG/10 ML SYR IV ONE (12:00)
[2017-02-13] MEDS ORDERED: NEOSTIGMINE 3 MG/3 ML SYR IV ONE (12:00)
[2017-02-13] MEDS ORDERED: LIDOCAINE HCL 1% PF 5 ML SYRINGE OTHER ONE (12:00)
[2017-02-13] MEDS ORDERED: ONDANSETRON HCL 4 MG/2 ML VIAL IV PUSH ONE (12:00)
[2017-02-13] MEDS ORDERED: PROPOFOL 200 MG/20 ML AMP IV ONE (12:00)
[2017-02-13] MEDS ORDERED: DEXAMETHASONE SOD PHOS 4 MG/ML VIAL IV ONE (12:00)
--- NOTE | 2017-02-13 13:58 | HHI.PR ---
Addendum to Inpatient Note Addendum Reason: Additional Documentation Additional Information Pt drowsy but arousable. Had sx this morning. Denies any pain at this time. No CP/SOB/N/V dressing over the right hip d/c/i. moves upper extremities w no difficulty and upon command. 1. s/p Intramedullary nailing right intertrochanteric hip fracture. POD#0. Pain control, Abx, dvt proph per ortho. 2. Hypertension Continue home lisinopril 3. Hyperlipidemia Continue home pravastatin Mireya Hardwick MD Feb 13, 2017 13:58
[2017-02-14 03:20] VITALS: BP 108/53; PULSE 83; RESP 17; TEMP 96.9; O2SAT 92
[2017-02-14] MEDS: DEXT 5%-NACL 0.45% 1000 ML INJ 1,000 ML IV SCH ×2 (03:59→15:24)
[2017-02-14 06:11] LABS: HEMATOCRIT 28.8 % (35.0-46.0); MEAN CELL VOLUME 87.6 FL (80.0-100.0); MEAN CORPUSCULAR HEMOGLOBIN 28.9 PG (27.0-34.0); MEAN CORPUSCULAR HGB CONC 32.9 % (32.0-36.0); PLATELET COUNT 228 TH/MM3 (150-450); RED BLOOD COUNT 3.29 MIL/MM3 (4.00-5.30); RED CELL DISTRIBUTION WIDTH 13.8 % (11.6-17.2); REVIEW FLAG FINAL; WHITE BLOOD COUNT 10.6 TH/MM3 (4.0-11.0)
[2017-02-14 06:39] LABS: BICARBONATE 24.5 MEQ/L (21.0-32.0); POTASSIUM 4.2 MEQ/L (3.5-5.1)
--- NOTE | 2017-02-14 07:56 | HHI.PR ---
Subjective Remarks Pt states she feels good, had no pain until she started moving w PT. no nausea or vomiting. No lightheadedness or dizziness. Objective Vitals Vital Signs Date Time Temp Pulse Resp B/P (MAP) Pulse Ox O2 Delivery O2 Flow Rate FiO2 02/14/17 03:20 96.9 83 17 108/53 (71) 92 02/13/17 23:18 96.7 84 17 105/55 (72) 93 02/13/17 20:59 96.8 86 18 140/70 (93) 95 02/13/17 20:00 66 02/13/17 16:13 97 Nasal Cannula 2.00 02/13/17 16:00 96.5 65 18 163/58 (93) 97 02/13/17 12:07 97 Nasal Cannula 2.00 02/13/17 12:00 95.7 63 18 124/61 (82) 97 02/13/17 11:30 96.6 60 12 145/73 (97) 99 Nasal Cannula 2 02/13/17 11:15 65 14 125/68 (87) 96 Nasal Cannula 2 02/13/17 11:00 64 14 156/71 (99) 96 Nasal Cannula 2 02/13/17 10:45 71 21 138/65 (89) 98 Nasal Cannula 2 02/13/17 10:32 97.9 96 18 131/76 (94) 98 Nasal Cannula 2 02/13/17 09:00 68 25 151/68 (95) 97 02/13/17 08:30 75 25 169/78 (108) 97 02/13/17 08:12 74 02/13/17 08:12 98.1 74 19 182/84 (116) 98 02/13/17 08:00 98.3 70 18 169/80 (109) 99 I/O 02/13/17 02/13/17 02/13/17 02/14/17 02/14/17 02/14/17 07:00 15:00 23:00 07:00 15:00 23:00 Intake Total 0 ml 875 ml 1304 ml 736 ml Output Total 500 ml 385 ml 200 ml 550 ml Balance -500 ml 490 ml 1104 ml 186 ml Intake Oral 0 ml 100 ml 360 ml 480 ml IV Total 75 ml 944 ml 256 ml Other 700 ml Output Urine Total 500 ml 375 ml 200 ml 550 ml Estimated Blood Loss 10 ml # Bowel Movements 1 0 0 0 Result Diagram: 02/14/17 0523 02/14/17 0523 Imaging Last Impressions Hip X-Ray 02/13/17 0000 Signed Impressions: Service Date/Time: January 10:06 - CONCLUSION: Intraoperative images. Ankush Bennett MD Femur X-Ray 02/12/177 Signed Impressions: Service Date/Time: January 00:25 - CONCLUSION: Intertrochanteric fracture with medial angulation. Constantino Blank MD Chest X-Ray 02/12/172346 Signed Impressions: Service Date/Time: January 00:27 - CONCLUSION: No evidence of acute cardiopulmonary disease. Constantino Blank MD Objective Remarks GENERAL: Thin, female lying in bed, about to work w PT EYES: Extraocular motions intact. ENT: Nose without drainage. Airway patent. NECK: Trachea midline CARDIOVASCULAR: Regular rate and rhythm. 3/6 systolic ejection murmur. RESPIRATORY: Clear to auscultation. Breath sounds equal bilaterally. No wheezes GASTROINTESTINAL: Abdomen soft, non-tender, nondistended. MUSCULOSKELETAL: dressing over the right hip w ice pack in place. no hematoma noted. able to move her lower extremity and wiggle her toes. sensation intact. NEUROLOGICAL: Awake and alert. Normal speech. A/P Assessment and Plan 1. s/p Intramedullary nailing right intertrochanteric hip fracture. POD#1. Pain control, Abx, rehab and dvt proph per ortho. 2. Anemia: from post op: Hb down to 9.5. Pt is asymptomatic. monitor. 3. Hypertension- stable low normal. Continue home lisinopril (w holding parameters) 4. Hyperlipidemia Continue home pravastatin Mireya Hardwick MD Feb 14, 2017 07:56
[2017-02-14 08:00] VITALS: BP 108/56; PULSE 62; RESP 18; TEMP 96.5; O2SAT 97
[2017-02-14] MEDS: SODIUM CHLORIDE 0.9% FLUSH 5 ML FLUSH IVF SCH ×2 (09:00→21:00)
[2017-02-14] MEDS: DOCUSATE SODIUM 50 MG/SENNA 8.6 MG TAB PO SCH ×2 (09:00→21:00)
[2017-02-14] MEDS: LISINOPRIL 20 MG TAB PO SCH (09:41)
[2017-02-14] MEDS: MULTIVITAMINS/MINERALS THERAPEUTIC TAB PO SCH (09:41)
[2017-02-14] MEDS: ACETAMINOPHEN 325 MG TAB PO PRN ×2 (09:42→16:48)
[2017-02-14] MEDS: PRAVASTATIN SOD 40 MG TAB PO SCH (09:42)
[2017-02-14] MEDS: ENOXAPARIN SODIUM 30 MG/0.3 ML SYRINGE SQ SCH (09:44)
[2017-02-14 12:00] VITALS: BP 103/66; PULSE 74; RESP 18; TEMP 98.7; O2SAT 95
--- NOTE | 2017-02-14 14:58 | PD.ORT.PN ---
Subjective Subjective Remarks no new issues Objective Vitals Vital Signs Date Time Temp Pulse Resp B/P (MAP) Pulse Ox O2 Delivery O2 Flow Rate FiO2 02/14/17 12:00 98.7 74 18 103/66 (78) 95 02/14/17 08:00 96.5 62 18 108/56 (73) 97 02/14/17 08:00 62 02/14/17 03:20 96.9 83 17 108/53 (71) 92 02/13/17 23:18 96.7 84 17 105/55 (72) 93 02/13/17 20:59 96.8 86 18 140/70 (93) 95 02/13/17 20:00 66 02/13/17 16:13 97 Nasal Cannula 2.00 02/13/17 16:00 96.5 65 18 163/58 (93) 97 I/O 02/13/17 02/13/17 02/13/17 02/14/17 02/14/17 02/14/17 07:00 15:00 23:00 07:00 15:00 23:00 Intake Total 0 ml 875 ml 1304 ml 736 ml Output Total 500 ml 385 ml 200 ml 550 ml Balance -500 ml 490 ml 1104 ml 186 ml Intake Oral 0 ml 100 ml 360 ml 480 ml IV Total 75 ml 944 ml 256 ml Other 700 ml Output Urine Total 500 ml 375 ml 200 ml 550 ml Estimated Blood Loss 10 ml # Bowel Movements 1 0 0 0 Result Diagram: 02/14/1752202/14/17522 Imaging Last 24 hours Impressions Femur X-Ray 02/12/172346 Signed Impressions: Service Date/Time: January 00:25 - CONCLUSION: Intertrochanteric fracture with medial angulation. Constantino Blank MD Chest X-Ray 02/12/172346 Signed Impressions: Service Date/Time: January 00:27 - CONCLUSION: No evidence of acute cardiopulmonary disease. Constantino Blank MD Objective Remarks RLE grossly nvi. dressing CDI. soft compartment. neg homans Assessment & Plan Assessment and Plan s/p R Troch Nail POD#1 50%PWB daily dressing changes lovenox d/c planning- likely SNF. son on the way f/up dr. milian 2 weeks Henry Song Jr., MD Feb 14, 2017 14:58
[2017-02-14 16:00] VITALS: BP 116/54; PULSE 70; RESP 18; TEMP 98.1; O2SAT 95
[2017-02-14 20:16] VITALS: BP 118/58; PULSE 77; RESP 20; TEMP 98.4; O2SAT 95
[2017-02-15] VITALS (8 sets, daily range): BP systolic 102–156; BP diastolic 56–96; PULSE 68–115; RESP 18; TEMP 96.4–99.2; O2SAT 94–96
[2017-02-15] MEDS: DEXT 5%-NACL 0.45% 1000 ML INJ 1,000 ML IV SCH ×4 (00:45→20:10)
--- NOTE | 2017-02-15 06:44 | PD.ORT.PN ---
Subjective Subjective Remarks Patient doing well. Pain relatively well controlled. Denies chest pain or shortness of breath. Denies nausea or vomiting. Objective Vitals Vital Signs Date Time Temp Pulse Resp B/P (MAP) Pulse Ox O2 Delivery O2 Flow Rate FiO2 02/15/17 04:13 98.2 98 18 121/58 (79) 96 02/15/17 00:20 99.2 115 18 133/ 95 02/14/17 20:16 98.4 77 20 118/58 (78) 95 02/14/17 16:00 98.1 70 18 116/54 (74) 95 02/14/17 12:00 98.7 74 18 103/66 (78) 95 02/14/17 08:00 96.5 62 18 108/56 (73) 97 02/14/17 08:00 62 I/O 02/14/17 02/14/17 02/14/17 02/15/17 02/15/17 02/15/17 07:00 15:00 23:00 07:00 15:00 23:00 Intake Total 736 ml 480 ml 1578 ml Output Total 550 ml 875 ml Balance 186 ml 480 ml -875 ml 1578 ml Intake Oral 480 ml 480 ml IV Total 256 ml 1578 ml Output Urine Total 550 ml 875 ml # Voids 3 # Bowel Movements 0 Result Diagram: 02/14/1752202/14/17522 Imaging Last 24 hours Impressions Femur X-Ray 02/12/172346 Signed Impressions: Service Date/Time: January 00:25 - CONCLUSION: Intertrochanteric fracture with medial angulation. Constantino Blank MD Chest X-Ray 02/12/172346 Signed Impressions: Service Date/Time: January 00:27 - CONCLUSION: No evidence of acute cardiopulmonary disease. Constantino Blank MD Objective Remarks RLE grossly nvi. dressing CDI. soft compartment. neg homans Assessment & Plan Assessment and Plan s/p R Troch Nail POD#2 50%PWB daily dressing changes lovenox d/c planning- likely SNF. son on the way f/up dr. milian 2 weeks Hannah Morgan MD Feb 15, 2017 06:44
[2017-02-15 07:06] LABS: BICARBONATE 24.5 MEQ/L (21.0-32.0); HEMATOCRIT 28.5 % (35.0-46.0); MEAN CELL VOLUME 86.6 FL (80.0-100.0); MEAN CORPUSCULAR HGB CONC 33.5 % (32.0-36.0); PLATELET COUNT 254 TH/MM3 (150-450); POTASSIUM 4.1 MEQ/L (3.5-5.1); RED BLOOD COUNT 3.29 MIL/MM3 (4.00-5.30); RED CELL DISTRIBUTION WIDTH 13.4 % (11.6-17.2); REVIEW FLAG FINAL; WHITE BLOOD COUNT 10.9 TH/MM3 (4.0-11.0)
--- NOTE | 2017-02-15 08:22 | HHI.PR ---
Subjective Remarks Pt states she feels ok when she doesn't move. denies any CP/SOB/N/V states that she lost a paper that w numbers that her son gave her. wants to go to a rahab facility closer to home Objective Vitals Vital Signs Date Time Temp Pulse Resp B/P (MAP) Pulse Ox O2 Delivery O2 Flow Rate FiO2 02/15/17 07:57 97.3 83 18 156/96 (116) 94 02/15/17 04:13 98.2 98 18 121/58 (79) 96 02/15/17 00:20 99.2 115 18 133/ 95 02/14/17 20:16 98.4 77 20 118/58 (78) 95 02/14/17 16:00 98.1 70 18 116/54 (74) 95 02/14/17 12:00 98.7 74 18 103/66 (78) 95 I/O 02/14/17 02/14/17 02/14/17 02/15/17 02/15/17 02/15/17 07:00 15:00 23:00 07:00 15:00 23:00 Intake Total 736 ml 480 ml 1578 ml Output Total 550 ml 875 ml Balance 186 ml 480 ml -875 ml 1578 ml Intake Oral 480 ml 480 ml IV Total 256 ml 1578 ml Output Urine Total 550 ml 875 ml # Voids 3 # Bowel Movements 0 Result Diagram: 02/15/17 0528 02/15/17 0528 Imaging Last Impressions Hip X-Ray 02/13/17 0000 Signed Impressions: Service Date/Time: January 10:06 - CONCLUSION: Intraoperative images. Ankush Bennett MD Femur X-Ray 02/12/172346 Signed Impressions: Service Date/Time: January 00:25 - CONCLUSION: Intertrochanteric fracture with medial angulation. Constantino Blank MD Chest X-Ray 02/12/172346 Signed Impressions: Service Date/Time: January 00:27 - CONCLUSION: No evidence of acute cardiopulmonary disease. Constantino Blank MD Objective Remarks GENERAL: Thin, female lying in bed, about to work w PT EYES: Extraocular motions intact. ENT: Nose without drainage. Airway patent. NECK: Trachea midline CARDIOVASCULAR: Regular rate and rhythm. 3/6 systolic ejection murmur. RESPIRATORY: Clear to auscultation. Breath sounds equal bilaterally. No wheezes GASTROINTESTINAL: Abdomen soft, non-tender, nondistended. MUSCULOSKELETAL: dressing over the right hip w ice pack in place. no hematoma noted. able to move her lower extremity and wiggle her toes. sensation intact. NEUROLOGICAL: Awake and alert. Normal speech. A/P Assessment and Plan 1. s/p Intramedullary nailing right intertrochanteric hip fracture. POD#2. Pain control, Abx, rehab and dvt proph per ortho. 2. Anemia: from post op: Hb down to 9.5 but stable today. Pt is asymptomatic. monitor. 3. Hypertension- stable low normal. Continue home lisinopril (w holding parameters) 4. Hyperlipidemia Continue home pravastatin Discharge Planning d/c when cleared by ortho. Anticipate d/c on friday Mireya Hardwick MD Feb 15, 2017 08:22
[2017-02-15] MEDS: SODIUM CHLORIDE 0.9% FLUSH 5 ML FLUSH IVF SCH ×2 (09:00→19:08)
[2017-02-15] MEDS: ACETAMINOPHEN 325 MG TAB PO PRN ×2 (09:07→19:04)
[2017-02-15] MEDS: MULTIVITAMINS/MINERALS THERAPEUTIC TAB PO SCH (09:08)
[2017-02-15] MEDS: DOCUSATE SODIUM 50 MG/SENNA 8.6 MG TAB PO SCH ×2 (09:08→19:06)
[2017-02-15] MEDS: LISINOPRIL 20 MG TAB PO SCH (09:08)
[2017-02-15] MEDS: ENOXAPARIN SODIUM 30 MG/0.3 ML SYRINGE SQ SCH (09:23)
[2017-02-15] MEDS ORDERED: PRAVASTATIN SOD 40 MG TAB PO SCH (21:00)
[2017-02-16] VITALS: BP 143/69; PULSE 97; RESP 20; TEMP 98; O2SAT 96
[2017-02-16 04:54] VITALS: BP 135/60; PULSE 81; RESP 18; TEMP 98; O2SAT 94
[2017-02-16 05:30] LABS: HEMATOCRIT 25.5 % (35.0-46.0); MEAN CELL VOLUME 87.3 FL (80.0-100.0); MEAN CORPUSCULAR HEMOGLOBIN 30.5 PG (27.0-34.0); PLATELET COUNT 264 TH/MM3 (150-450); RED BLOOD COUNT 2.92 MIL/MM3 (4.00-5.30); RED CELL DISTRIBUTION WIDTH 13.6 % (11.6-17.2); REVIEW FLAG FINAL
[2017-02-16 05:53] LABS: BICARBONATE 26.1 MEQ/L (21.0-32.0); POTASSIUM 3.7 MEQ/L (3.5-5.1)
--- NOTE | 2017-02-16 07:00 | PD.ORT.PN ---
Subjective Subjective Remarks Patient doing well. Pain relatively well controlled. Denies chest pain or shortness of breath. Denies nausea or vomiting. Objective Vitals Vital Signs Date Time Temp Pulse Resp B/P (MAP) Pulse Ox O2 Delivery O2 Flow Rate FiO2 02/16/17 04:54 98.0 81 18 135/60 (85) 94 02/16/17 00:00 98.0 97 20 143/69 (93) 96 02/15/17 20:13 93 02/15/17 20:10 18 02/15/17 19:57 96.4 92 18 112/65 (81) 95 02/15/17 16:00 97.8 77 18 122/64 (83) 95 02/15/17 12:00 98.9 68 18 102/56 (71) 95 02/15/17 11:15 90 02/15/17 07:57 97.3 83 18 156/96 (116) 94 I/O 02/15/17 02/15/17 02/15/17 02/16/17 02/16/17 02/16/17 07:00 15:00 23:00 07:00 15:00 23:00 Intake Total 1578 ml 600 ml Balance 1578 ml 600 ml Intake Oral 600 ml IV Total 1578 ml # Voids 3 2 1 2 # Bowel Movements 1 0 0 Result Diagram: 02/16/1744402/16/17444 Imaging Last 24 hours Impressions Femur X-Ray 02/12/172346 Signed Impressions: Service Date/Time: January 00:25 - CONCLUSION: Intertrochanteric fracture with medial angulation. Constantino Blank MD Chest X-Ray 02/12/172346 Signed Impressions: Service Date/Time: January 00:27 - CONCLUSION: No evidence of acute cardiopulmonary disease. Constantino Blank MD Objective Remarks RLE grossly nvi. dressing CDI. soft compartment. neg homans Assessment & Plan Assessment and Plan s/p R Troch Nail POD#3 50%PWB daily dressing changes lovenox d/c planning- likely SNF. son on the way f/up dr. milian 2 weeks Hannah Morgan MD Feb 16, 2017 07:00
[2017-02-16 07:14] VITALS: BP 122/65; PULSE 92; RESP 18; TEMP 99; O2SAT 96
[2017-02-16] MEDS: ACETAMINOPHEN 325 MG TAB PO PRN (08:29)
[2017-02-16] MEDS: LISINOPRIL 20 MG TAB PO SCH (08:29)
[2017-02-16] MEDS: MULTIVITAMINS/MINERALS THERAPEUTIC TAB PO SCH (08:29)
[2017-02-16] MEDS: SODIUM CHLORIDE 0.9% FLUSH 5 ML FLUSH IVF SCH (08:30)
[2017-02-16] MEDS: DOCUSATE SODIUM 50 MG/SENNA 8.6 MG TAB PO SCH (08:30)
[2017-02-16] MEDS: ENOXAPARIN SODIUM 30 MG/0.3 ML SYRINGE SQ SCH (08:32)
--- NOTE | 2017-02-16 08:42 | HHI.DS ---
Discharge Summary Admission Date Feb 13, 2017 at 01:35 Discharge Date: Feb 16, 2017 Admitting Diagnosis R hip fracture, closed (1) Closed intertrochanteric fracture of right hip ICD Code: S72.141A - Displaced intertrochanteric fracture of right femur, initial encounter for closed fracture Status: Acute Procedures s/p R Troch Nail POD#3 Brief History - From Admission 2-year-old female with a past medical history of hypertension and hyperlipidemia since after falling in her home this evening. The patient reports she had walked into her son's bedroom and tripped over a board on the floor falling directly onto her right hip. She has full memory of the event. She denies any preceding lightheadedness or dizziness. She did not hit her head or lose consciousness. Femur x-ray significant for an intertrochanteric fracture with medial angulation. The patient reports pain only when she attempts to move. CBC/BMP: 02/16/17 0445 02/16/17 0445 Significant Findings Laboratory Tests Test 02/14/17 05:23 02/15/17 05:28 02/16/17 04:45 Red Blood Count 3.29 MIL/MM3 (4.00-5.30) 3.29 MIL/MM3 (4.00-5.30) 2.92 MIL/MM3 (4.00-5.30) Hemoglobin 9.5 GM/DL (11.6-15.3) 9.5 GM/DL (11.6-15.3) 8.9 GM/DL (11.6-15.3) Hematocrit 28.8 % (35.0-46.0) 28.5 % (35.0-46.0) 25.5 % (35.0-46.0) Random Glucose 137 MG/DL (74-106) 146 MG/DL (74-106) Calcium Level 7.5 MG/DL (8.5-10.1) 8.2 MG/DL (8.5-10.1) 8.4 MG/DL (8.5-10.1) Sodium Level 133 MEQ/L (136-145) Estimat Glomerular Filtration Rate 68 ML/MIN (>89) 61 ML/MIN (>89) 74 ML/MIN (>89) Imaging Last Impressions Hip X-Ray 02/13/17 0000 Signed Impressions: Service Date/Time: January 10:06 - CONCLUSION: Intraoperative images. Ankush Bennett MD Femur X-Ray 02/12/172346 Signed Impressions: Service Date/Time: January 00:25 - CONCLUSION: Intertrochanteric fracture with medial angulation. Constantino Blank MD Chest X-Ray 02/12/172346 Signed Impressions: Service Date/Time: January 00:27 - CONCLUSION: No evidence of acute cardiopulmonary disease. Constantino Blank MD PE at Discharge GENERAL: Thin, female lying in bed, about to work w PT EYES: Extraocular motions intact. ENT: Nose without drainage. Airway patent. NECK: Trachea midline CARDIOVASCULAR: Regular rate and rhythm. 3/6 systolic ejection murmur. RESPIRATORY: Clear to auscultation. Breath sounds equal bilaterally. No wheezes GASTROINTESTINAL: Abdomen soft, non-tender, nondistended. MUSCULOSKELETAL: dressing over the right hip w ice pack in place. no hematoma noted. able to move her lower extremity and wiggle her toes. sensation intact. NEUROLOGICAL: Awake and alert. Normal speech. Pt update on day of discharge Pt feels well. Pain well controlled. About to eat breakfast, no nausea or vomiting. No lightheadedness or dizziness Hospital Course 1. Intramedullary nailing right intertrochanteric hip fracture. s/p R Troch Nail POD#3. Pain control, Abx, rehab and dvt proph per ortho. 2. Anemia: from post op: Hb down to 8.9 but stable. Pt is asymptomatic. 3. Hypertension- stable low normal. Continue home lisinopril (w holding parameters) 4. Hyperlipidemia Continue home pravastatin Pt Condition on Discharge: Stable Discharge Disposition: Discharge to SNF Discharge Time: > 30 minutes Discharge Instructions DIET: Follow Instructions for: Heart Healthy Diet Activities you can perform: See Additionl Instruction Other Activity Instructions: 50%PWB daily dressing changes Follow up Referrals: Orthopedics - 2 Weeks PCP Follow-up - 2 Weeks New Medications: Aspirin (Aspirin Low Dose) 81 Mg Chew 81 MG CHEW DAILY for Prevent Blood Clot for 30 Days, #30 TAB 0 Refills Enoxaparin Inj (Lovenox Inj) 30 Mg/0.3 Ml Syr 30 MG SQ DAILY for Blood Clot Prevention, #7 SYRINGE 0 Refills Hydrocodone-Acetaminophen ([place]) 7.5-325 mg Tab 1 TAB PO Q6H PRN for PAIN, #90 TAB 0 Refills Continued Medications: Lisinopril (Lisinopril) 20 Mg Tab 20 MG PO DAILY, #30 TAB 0 Refills Pravastatin (Pravastatin) 40 Mg Tab 40 MG PO DAILY for Cholesterol Management, #30 TAB 0 Refills Mireya Hardwick MD Feb 16, 2017 08:42
[2017-02-16 12:00] VITALS: BP 118/70; PULSE 100; RESP 18; TEMP 97.2; O2SAT 96
== END 2017-02-16 13:37 | DRG 482 ==
LOC: NEPC 22:35 → NEDA 02-13 01:35 → N06A 02-13 02:38 → UNDODISIN 02-16 13:33
PROVIDERS: ADMIT Hospitalist; ATTEND Hospitalist
PROC: 0QS606Z Reposition Right Upper Femur with Intramedullary Internal Fixation Device, Open Approach (ICD-10-PCS; principal; 2017-02-13 09:19)
DX: S72.141A Displaced intertrochanteric fracture of right femur, initial encounter for closed fracture (principal); D64.9 Anemia, unspecified; W01.0XXA Fall on same level from slipping, tripping and stumbling without subsequent striking against object, initial encounter; I10 Essential (primary) hypertension; E78.5 Hyperlipidemia, unspecified; M19.90 Unspecified osteoarthritis, unspecified site; H91.90 Unspecified hearing loss, unspecified ear
CPT/HCPCS: 51702; 71010; 73502; 73552; 76000; 80048; 80053; 81001; 85025; 85027; 85610; 85730; 86850; 86900; 86901; 93005; 94150; C1713; J0131; J0690; J1100; J1580; J1650; J2250; J2270; J2370; J2405; J2710; J3010; J3370; J7050; J7120